=== PATIENT | female | born 1935 | race Caucasian/White ===

== ENCOUNTER 2018-02-23 08:04 | Emergency (ER) | payer OTHER, BC ==
[~2018-02-23] VITALS: Ht 144.8 cm; Wt 51.7 kg
[~2018-02-23 08:04] MED LIST: ACETAMINOPHEN500 MG PO; ADVAIR 100/501 DISK IH; AUGMENTIN500 MG PO; COMBIVENT INH14.7 GM IH; NORVASC5 MG PO
[2018-02-23 08:37] LABS: CHLORIDE 101 mEq/L (99-109); POTASSIUM 5.7 mEq/L (3.7-5.4); SODIUM 138 mEq/L (136-147)
[2018-02-23 08:38] LABS: GLUCOSE 128 mg/dL (70-99)
[2018-02-23 08:42] LABS: CREATININE 0.7 mg/dL (0.6-1.3); GFR ESTIMATE (CALCULATED) > 59 mL/min/
[2018-02-23 08:43] LABS: UREA NITROGEN (BUN) 21 mg/dL (9-23)
[2018-02-23 09:13] LABS: BASOPHIL COUNT 0.1 K/uL (0-0.1); EOSINOPHIL (%) 2.8 % (0-5); EOSINOPHIL COUNT 0.2 K/uL (0-0.3); HEMATOCRIT 44.3 % (36.0-46.0); IMMATURE GRANULOCYTE (%) 0.4 % (0.0-0.7); LYMPHOCYTE (%) 15.7 % (15-42); LYMPHOCYTE COUNT 1.1 K/uL (1.0-2.8); MCH 30.3 PG (29.0-34.0); MCHC 31.6 G/DL (30.0-36.0); MCV 95.9 FL (83-99); MONOCYTE (%) 8.7 % (3-12); MONOCYTE COUNT 0.6 K/uL (0-0.8); NEUTROPHIL (%) 71.4 % (45-76); NEUTROPHIL COUNT 5.2 K/uL (1.8-6.4); PLATELET COUNT 132 K/uL (156-360); RBC DIS.WIDTH-CV 14.7 % (11.8-14.6); RBC DIS.WIDTH-SD 50.4 % (39-53); RED BLOOD COUNT 4.62 M/uL (3.80-5.20); WHITE BLOOD COUNT 7.3 K/uL (4.1-10.2)
[2018-02-23] MEDS ORDERED: PREDNISONE50 MG PO (10:29)
[2018-02-23] MEDS ORDERED: ZITHROMAX Z-PA250 MG PO (10:29)
[2018-02-23 10:50] VITALS: BP 136/70
== END 2018-02-23 10:51 | disposition home or self-care (01) ==
LOC: EME 08:04
PROVIDERS: Emergency Medicine
DX: J20.9 Acute bronchitis, unspecified (principal); J44.0 Chronic obstructive pulmonary disease with (acute) lower respiratory infection; J44.1 Chronic obstructive pulmonary disease with (acute) exacerbation; I25.10 Atherosclerotic heart disease of native coronary artery without angina pectoris; G30.9 Alzheimer's disease, unspecified; F02.80 Dementia in other diseases classified elsewhere, unspecified severity, without behavioral disturbance, psychotic disturbance, mood disturbance, and anxiety; Z87.891 Personal history of nicotine dependence
CPT/HCPCS: 71045; 80048; 85025; 93005; 94640; 99281; 99285; J2930